=== PATIENT | male | born 1990 | race Native Hawaiian/Other Pacific Islander ===

== ENCOUNTER 2017-05-05 23:22 | Inpatient (IN) | payer OTHER ==
[2017-05-05 23:20] VITALS: O2SAT 100
[2017-05-05] MEDS ORDERED: ONDANSETRON HCL 4 MG/2 ML VIAL ONE (23:29)
[2017-05-05] MEDS ORDERED: MORPHINE SULFATE 8 MG/ML INJ ONE ×2 (23:29→23:37)
[2017-05-05] MEDS ORDERED: LORazepam 2 MG/ML VIAL ONE (23:38)
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
[2017-05-05 23:41] LABS: AUTOMATED NEUTROPHIL # 4.8 TH/MM3 (1.8-7.7); BASOPHIL % 0.4 % (0.0-2.0); EOSINOPHIL # 0.1 TH/MM3 (0-0.4); EOSINOPHIL % 1.3 % (0.0-4.0); HEMATOCRIT 42.3 % (39.0-51.0); HEMO FLAGS DIFF FINAL; LYMPH % 43.7 % (9.0-44.0); LYMPHOCYTE # 4.8 TH/MM3 (1.0-4.8); MEAN CELL VOLUME 87.8 FL (80.0-100.0); MEAN CORPUSCULAR HEMOGLOBIN 29.5 PG (27.0-34.0); MEAN CORPUSCULAR HGB CONC 33.6 % (32.0-36.0); MONO % 10.7 % (0.0-8.0); NEUT % 43.9 % (16.0-70.0); PLATELET COUNT 242 TH/MM3 (150-450); RED BLOOD COUNT 4.82 MIL/MM3 (4.50-5.90); RED CELL DISTRIBUTION WIDTH 13.7 % (11.6-17.2)
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
[2017-05-05] MEDS ORDERED: SODIUM CHLOR 0.9% 1000 ML INJ 1,000 ML IV ONE (23:45)
[2017-05-05] MEDS ORDERED: DIPHTH/TETANUS/ACEL PERTUSSIS (BOOSTER) 0.5 ML VIAL/PFS IM ONE (23:45)
[2017-05-05] MEDS ORDERED: ceFAZolin 2 GM PREMIX 50 ML IV STA (23:45)
[2017-05-05 23:52] LABS: APTT (PATIENT) 22.4 SEC (24.3-30.1); INTERNATIONAL NORMALIZED RATIO 1.1 RATIO; PROTHROMBIN TIME - PATIENT 12.5 SEC (9.8-11.6)
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
[2017-05-05 23:54] LABS: I-STAT POTASSIUM 3.1 MMOL/L (3.5-4.9); I-STAT SODIUM 140 MMOL/L (138-146)
[2017-05-05] MEDS ORDERED: IOHEXOL 350 MG/ML 10 ML VIAL (for RAD DIAG) IV ONE (23:57)
[2017-05-06] VITALS (11 sets, daily range): BP systolic 100–101; BP diastolic 52–59; PULSE 89–138; RESP 18–20; TEMP 97.5–98.9; O2SAT 97–100
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
[2017-05-06] MEDS ORDERED: CHLORHEXIDINE GLUCONATE 2 % 1 PACK (2 CLOTHS) TOP PRN (00:45)
[2017-05-06] MEDS ORDERED: ONDANSETRON HCL 4 MG/2 ML VIAL IV PRN (00:45)
[2017-05-06] MEDS: BACITRACIN TOP OINT 15 GM TUBE TOP SCH ×3 (00:45→21:21)
[2017-05-06] MEDS ORDERED: MAGNESIUM HYDROXIDE SUSP 30 ML CUP PO PRN (00:45)
[2017-05-06] MEDS ORDERED: ENALAPRILAT 1.25 MG/ML VIAL IV PRN (00:45)
[2017-05-06] MEDS ORDERED: MISCELLANEOUS NURSING INFORMATION XX SCH (00:45)
[2017-05-06] MEDS ORDERED: SODIUM CHLORIDE 0.9% FLUSH 10 ML FLUSH IV FLUSH PRN (00:45)
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
[2017-05-06] MEDS: LACTATED RINGER'S 1000 ML INJ 1,000 ML IV SCH ×3 (01:24→14:00)
[2017-05-06] MEDS ORDERED: DEXTROSE 50% IN WATER 50 ML VIAL(D50) IV PRN (02:30)
[2017-05-06] MEDS ORDERED: GLUCAGON 1 MG/ML VIAL OTHER PRN (02:30)
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
[2017-05-06] MEDS ORDERED: ACETAMINOPHEN/HYDROcodone 325 MG/5 MG TAB PO PRN ×2 (03:30)
[2017-05-06] MEDS ORDERED: LACTATED RINGER'S 1000 ML INJ 1,000 ML IV ONE (03:30)
[2017-05-06] MEDS: CHLORHEXIDINE GLUCONATE 2 % 1 PACK (2 CLOTHS) TOP SCH (04:00)
[2017-05-06 05:02] LABS: HEMATOCRIT 36.4 % (39.0-51.0); MEAN CELL VOLUME 88.3 FL (80.0-100.0); MEAN CORPUSCULAR HGB CONC 32.9 % (32.0-36.0); PLATELET COUNT 216 TH/MM3 (150-450); RED BLOOD COUNT 4.12 MIL/MM3 (4.50-5.90); RED CELL DISTRIBUTION WIDTH 13.4 % (11.6-17.2); REVIEW FLAG FINAL
[2017-05-06 05:17] LABS: APTT (PATIENT) 22.1 SEC (24.3-30.1); INTERNATIONAL NORMALIZED RATIO 1.1 RATIO; PROTHROMBIN TIME - PATIENT 12.7 SEC (9.8-11.6)
[2017-05-06 05:26] LABS: BICARBONATE 26.7 MEQ/L (21.0-32.0); POTASSIUM 3.2 MEQ/L (3.5-5.1)
[2017-05-06] MEDS: POTASSIUM CHLOR 10 MEQ PREMIX 100 ML IV SCH ×3 (07:28→12:16)
[2017-05-06] MEDS: DOCUSATE SODIUM 100 MG CAP PO SCH ×2 (07:39→21:20)
[2017-05-06] MEDS: INSULIN ASPART SUPPLEMENTAL SCALE SQ SCH ×4 (07:41→21:00)
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
[2017-05-06] MEDS: LACTULOSE SYRUP 20 GM/30 ML CUP PO SCH (12:20)
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
[2017-05-07] VITALS (9 sets, daily range): BP systolic 92–117; BP diastolic 51–65; PULSE 110–138; RESP 18–20; TEMP 98.1–99.2; O2SAT 97–100
[2017-05-07] MEDS: CHLORHEXIDINE GLUCONATE 2 % 1 PACK (2 CLOTHS) TOP SCH (01:28)
[2017-05-07] MEDS: INSULIN ASPART SUPPLEMENTAL SCALE SQ SCH ×4 (06:33→20:26)
[2017-05-07 07:38] LABS: AUTOMATED NEUTROPHIL # 9.6 TH/MM3 (1.8-7.7); BASOPHIL % 0.1 % (0.0-2.0); EOSINOPHIL % 0.1 % (0.0-4.0); HEMATOCRIT 30.4 % (39.0-51.0); HEMO FLAGS DIFF FINAL; LYMPH % 11.5 % (9.0-44.0); LYMPHOCYTE # 1.4 TH/MM3 (1.0-4.8); MEAN CELL VOLUME 87.1 FL (80.0-100.0); MEAN CORPUSCULAR HEMOGLOBIN 29.2 PG (27.0-34.0); MEAN CORPUSCULAR HGB CONC 33.5 % (32.0-36.0); MONO % 11.6 % (0.0-8.0); NEUT % 76.7 % (16.0-70.0); PLATELET COUNT 162 TH/MM3 (150-450); RED BLOOD COUNT 3.49 MIL/MM3 (4.50-5.90); RED CELL DISTRIBUTION WIDTH 13.2 % (11.6-17.2); WHITE BLOOD COUNT 12.5 TH/MM3 (4.0-11.0)
[2017-05-07 08:25] LABS: BICARBONATE 26.9 MEQ/L (21.0-32.0); POTASSIUM 3.6 MEQ/L (3.5-5.1)
[2017-05-07] MEDS: LACTULOSE SYRUP 20 GM/30 ML CUP PO SCH (09:14)
[2017-05-07] MEDS: BACITRACIN TOP OINT 15 GM TUBE TOP SCH ×2 (09:15→20:07)
[2017-05-07] MEDS: DOCUSATE SODIUM 100 MG CAP PO SCH ×2 (09:15→20:07)
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
[2017-05-07] MEDS ORDERED: LACTATED RINGER'S 1000 ML INJ 1,000 ML IV SCH (10:00)
--- NOTE | 2017-05-07 10:03 | HHI.PR ---
Subjective Subjective Notes Reports dizziness with standing Complains of abrasions sticking to sheets causing pain Objective Vitals/I&O Vital Signs Date Time Temp Pulse Resp B/P Pulse Ox O2 Delivery O2 Flow Rate FiO2 05/07/17 08:50 98.7 132 20 92/51 99 05/05/17 23:20 2.00 05/05/17 23:20 Nasal Cannula Labs Laboratory Tests Test 05/06/17 05/07/17 12:26 06:33 Nasal Screen MRSA (PCR) MRSA NOT DETECTED White Blood Count 12.5 Red Blood Count 3.49 Hemoglobin 10.2 Hematocrit 30.4 Mean Corpuscular Volume 87.1 Mean Corpuscular Hemoglobin 29.2 Mean Corpuscular Hemoglobin 33.5 Concent Red Cell Distribution Width 13.2 Platelet Count 162 Mean Platelet Volume 8.3 Neutrophils (%) (Auto) 76.7 Lymphocytes (%) (Auto) 11.5 Monocytes (%) (Auto) 11.6 Eosinophils (%) (Auto) 0.1 Basophils (%) (Auto) 0.1 Neutrophils # (Auto) 9.6 Lymphocytes # (Auto) 1.4 Monocytes # (Auto) 1.4 Eosinophils # (Auto) 0.0 Basophils # (Auto) 0.0 CBC Comment DIFF FINAL Differential Comment Sodium Level 140 Potassium Level 3.6 Chloride Level 105 Carbon Dioxide Level 26.9 Anion Gap 8 Blood Urea Nitrogen 8 Creatinine 0.64 Estimat Glomerular Filtration 108 Rate Random Glucose 111 Calcium Level 8.2 [place] Fan May 07, 2017 10:03
[2017-05-07] MEDS ORDERED: LACTATED RINGER'S 1000 ML INJ 1,000 ML IV ONE (10:15)
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
[2017-05-07] MEDS ORDERED: ACETAMINOPHEN 325 MG TAB PO PRN (18:00)
[2017-05-08 04:00] VITALS: BP 106/59; PULSE 115; RESP 18; TEMP 98.4; O2SAT 100
[2017-05-08] MEDS: CHLORHEXIDINE GLUCONATE 2 % 1 PACK (2 CLOTHS) TOP SCH (04:00)
[2017-05-08] MEDS: INSULIN ASPART SUPPLEMENTAL SCALE SQ SCH ×3 (06:22→20:57)
[2017-05-08] MEDS: LACTULOSE SYRUP 20 GM/30 ML CUP PO SCH (08:06)
[2017-05-08] MEDS: DOCUSATE SODIUM 100 MG CAP PO SCH ×2 (08:07→20:53)
[2017-05-08 08:14] LABS: HEMATOCRIT 28.3 % (39.0-51.0); REVIEW FLAG FINAL
[2017-05-08] MEDS: BACITRACIN TOP OINT 15 GM TUBE TOP SCH ×2 (09:00→21:00)
[2017-05-08 09:12] VITALS: BP 110/64; PULSE 110; RESP 20; TEMP 98.2; O2SAT 100
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
[2017-05-08 12:23] VITALS: BP 92/58; PULSE 114; RESP 20; TEMP 98.1; O2SAT 100
[2017-05-08] MEDS: KETOROLAC TROMETHAMINE 30 MG/ML (IVP) VIAL IV PUSH SCH (13:04)
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
[2017-05-08] MEDS: HYDROmorphone HCL PF 1 MG/ML VIAL IVP PRN (16:27)
[2017-05-08 16:39] VITALS: BP 105/56; PULSE 107; RESP 20; TEMP 98; O2SAT 100
[2017-05-08] MEDS ORDERED: BACI500O2 TOP (18:36)
[2017-05-08] MEDS ORDERED: MAGN400S PO (18:36)
[2017-05-08] MEDS ORDERED: ACET1TAB86 PO (18:36)
[2017-05-08] MEDS ORDERED: DOCU1CAP39 PO (18:36)
[2017-05-08 20:00] VITALS: BP 104/57; PULSE 94; RESP 18; TEMP 97.9; O2SAT 100
[2017-05-09] VITALS: BP 105/60; PULSE 115; RESP 20; TEMP 99.2; O2SAT 95
[2017-05-09] MEDS: KETOROLAC TROMETHAMINE 30 MG/ML (IVP) VIAL IV PUSH SCH ×5 (01:16→18:00)
[2017-05-09] MEDS: CHLORHEXIDINE GLUCONATE 2 % 1 PACK (2 CLOTHS) TOP SCH (04:00)
[2017-05-09] MEDS: INSULIN ASPART SUPPLEMENTAL SCALE SQ SCH ×4 (06:38→20:46)
[2017-05-09 08:39] VITALS: BP 111/60; PULSE 102; RESP 20; TEMP 96; O2SAT 99
[2017-05-09] MEDS: BACITRACIN TOP OINT 15 GM TUBE TOP SCH ×2 (09:00→21:00)
[2017-05-09] MEDS: DOCUSATE SODIUM 100 MG CAP PO SCH ×2 (09:24→20:42)
[2017-05-09] MEDS: LACTULOSE SYRUP 20 GM/30 ML CUP PO SCH (09:24)
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
[2017-05-09 12:52] VITALS: BP 105/60; PULSE 97; RESP 20; TEMP 98.8; O2SAT 100
[2017-05-09] MEDS: HYDROmorphone HCL PF 1 MG/ML VIAL IVP PRN ×2 (15:45→17:58)
[2017-05-09 20:26] VITALS: BP 110/56; PULSE 120; RESP 16; TEMP 98.1; O2SAT 99
[2017-05-10] MEDS: KETOROLAC TROMETHAMINE 30 MG/ML (IVP) VIAL IV PUSH SCH ×2 (00:25→06:00)
[2017-05-10 00:54] VITALS: BP 109/66; PULSE 96; RESP 18; TEMP 99.8; O2SAT 100
[2017-05-10 05:07] VITALS: BP 95/54; PULSE 82; RESP 18; TEMP 96.5; O2SAT 99
[2017-05-10] MEDS: INSULIN ASPART SUPPLEMENTAL SCALE SQ SCH ×4 (06:20→21:54)
[2017-05-10 08:00] VITALS: BP 86/51; PULSE 105; RESP 16; TEMP 99.5; O2SAT 98
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
[2017-05-10] MEDS: LACTULOSE SYRUP 20 GM/30 ML CUP PO SCH (10:00)
[2017-05-10] MEDS: DOCUSATE SODIUM 100 MG CAP PO SCH ×2 (10:00→21:55)
[2017-05-10] MEDS: BACITRACIN TOP OINT 15 GM TUBE TOP SCH ×2 (10:01→21:55)
[2017-05-10 12:00] VITALS: BP 110/60; PULSE 113; RESP 20; TEMP 98.6; O2SAT 99
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
[2017-05-10 16:00] VITALS: BP 98/60; PULSE 115; RESP 18; TEMP 98.7; O2SAT 100
[2017-05-10 20:22] VITALS: BP 97/66; PULSE 110; RESP 18; TEMP 98.7; O2SAT 100
[2017-05-11 01:02] VITALS: BP 107/63; PULSE 114; RESP 18; TEMP 98.4; O2SAT 99
[2017-05-11 04:00] VITALS: BP 90/51; PULSE 98; RESP 16; TEMP 99.1; O2SAT 99
[2017-05-11] MEDS: INSULIN ASPART SUPPLEMENTAL SCALE SQ SCH ×2 (06:35→11:00)
[2017-05-11 08:00] VITALS: BP 112/75; PULSE 125; RESP 19; TEMP 98.4; O2SAT 99
[2017-05-11] MEDS: DOCUSATE SODIUM 100 MG CAP PO SCH (09:13)
[2017-05-11] MEDS: LACTULOSE SYRUP 20 GM/30 ML CUP PO SCH (09:13)
[2017-05-11] MEDS: BACITRACIN TOP OINT 15 GM TUBE TOP SCH (09:14)
[2017-05-11 12:00] VITALS: BP 126/69; PULSE 99; RESP 19; TEMP 98.2; O2SAT 100
[2017-05-11] MEDS ORDERED: HYDR-3516 PO (13:08)
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
== END 2017-05-11 16:28 | disposition home or self-care (01) | DRG 41 ==
LOC: NEPI 23:22 → EDBD 05-06 00:15 → NEDA 05-06 00:15 → N03A 05-06 00:47 → N05A 05-06 18:48
PROVIDERS: ADMIT Surgery; ATTEND Surgery
PROC: 0HB0XZZ Excision of Scalp Skin, External Approach (ICD-10-PCS; principal; 2017-05-06)
PROC: 0HQ0XZZ Repair Scalp Skin, External Approach (ICD-10-PCS; 2017-05-06)
DX: S06.6X9A Traumatic subarachnoid hemorrhage with loss of consciousness of unspecified duration, initial encounter (principal); D68.8 Other specified coagulation defects; S01.01XA Laceration without foreign body of scalp, initial encounter; S31.811A Laceration without foreign body of right buttock, initial encounter; E86.1 Hypovolemia; S02.19XA Other fracture of base of skull, initial encounter for closed fracture; S00.31XA Abrasion of nose, initial encounter; E87.6 Hypokalemia; S31.821A Laceration without foreign body of left buttock, initial encounter; S40.212A Abrasion of left shoulder, initial encounter; S60.512A Abrasion of left hand, initial encounter; S60.511A Abrasion of right hand, initial encounter; S50.311A Abrasion of right elbow, initial encounter; S80.212A Abrasion, left knee, initial encounter; S70.311A Abrasion, right thigh, initial encounter; R40.2411 Glasgow coma scale score 13-15, in the field [EMT or ambulance]; R73.09 Other abnormal glucose; V23.4XXA Motorcycle driver injured in collision with car, pick-up truck or van in traffic accident, initial encounter
CPT/HCPCS: 12006; 70450; 70486; 71010; 71260; 72125; 72128; 72131; 72170; 73080; 73552; 73564; 74177; 80048; 80307; 82435; 82565; 82947; 82948; 84132; 84295; 84520; 85014; 85018; 85025; 85027; 85384; 85610; 85730; 86850; 86900; 86901; 86920; 86921; 86922; 87641; 90471; 94150; 96374; 96375; J0690; J1170; J1815; J1885; J2060; J2270; J2405; J3480; J7120; Q9967